=== PATIENT | female | born 1980 | race Caucasian/White ===

== ENCOUNTER 2017-10-16 08:21 | Outpatient (CLI) | payer MEDICAID ==
[~2017-10-16] VITALS: Ht 147.3 cm; Wt 87.2 kg
[2017-10-16 08:33] VITALS: Ht 147.3 cm; Wt 87.2 kg
[2017-10-16 08:34] VITALS: BP 112/66; PULSE 64; RESP 18
[2017-10-16] MEDS ORDERED: PNV11TAB PO (08:39)
--- NOTE | 2017-10-16 08:54 | PN ---
Triage Information Date/Time Reason for visit: Vag spotting / bleeding Weeks of Gestation Patient is a 36-year-old 4 para 3 at 31 weeks of gestation with estimated date of delivery December 18, 2017 Patient reports a history of delivery with her prior She reports of having vaginal spotting and bleeding in the first 4 months of this which ultimately resolved She is here today reporting of having an episode of vaginal bleeding last night which was bright red blood with a small clot She denies any intercourse in the last month Patient reports positive movement, no leaking fluid and no uterine contractions, no abdominal or pelvic pain /Para 4 para 3 Diabetes: none Hypertention: none Objective Vital Signs Date Time Temp Pulse Resp B/P Pulse Ox O2 Delivery O2 Flow Rate FiO2 10/16/17 08:34 98.0 64 18 112/66 Heart Rate: 140's Heart Rate Comments heart rate category 1 Contractions: None Results/Medications Results 24 hrs Labs within normal limits UA indicating 3+ blood Imaging Results PROCEDURE: US OB. CLINICAL INDICATION: Uncertain size and dates. TECHNIQUE: Multiple sonographic images of the uterus were obtained. Transvaginal sonography of the cervix was also performed. The images were reviewed on a PACS workstation. COMPARISON: No prior studies are available for comparison. FINDINGS: There is a single live intrauterine gestation. heart rate is 182 beats per minute. Measurements were made in order to determine age. The results are as follows: BPD = 7.99 cm. HC = 28.76 cm. AC = 27.95 cm. FL = 5.82 cm. Estimated weight is 1776 +/- 266 grams. LMP growth percentile is 54 %. Transvaginal cervical length is 5.2 cm. Menstrual age by ultrasound dates is 31 weeks 4 days. The estimated date of delivery is 12/14/2017. Position is breech and placenta is anterior grade 1. There is no evidence for an abruption or placenta previa. IMPRESSION: 1. Single live intrauterine gestation of 31 weeks 4 days menstrual age by ultrasound dates. 2. The estimated date of delivery is 12/14/2017. 3. Position is breech. 4. Cervical length is 5.2 cm. RPTAT: QQ .Dominic Owen MD, Date Time Electronically viewed and signed by .Dominic Owen MD, on 10/16/2017 09:37 .R/ CC: LAURA OREILLY MD PROCEDURE: US OB. CLINICAL INDICATION: Vaginal bleeding TECHNIQUE: Multiple sonographic images of the pelvis were obtained. The images were reviewed on a PACS workstation. COMPARISON: No prior studies are available for comparison. FINDINGS: There is a single live intrauterine . cardiac activity is identified at a rate of 140 beats per minute. presentation is breech. Placenta is anterior grade 1. There is no evidence of abruption. Biophysical profile score is as follows: Breathing 2 Movements 2 Tone 2 Fluid volume 2 Amniotic fluid index = 9.7 cm Total biophysical profile score = 8/8 IMPRESSION: Biophysical profile score = 8/8 RPTAT: HH .Toy Emmanuel MD, MD Date Time Electronically viewed and signed by .Toy Emmanuel MD, on 10/16/2017 09:15 .W/ CC: LAURA OREILLY MD Disposition: Discharge Assessment/Plan Patient was counseled regarding receiving betamethasone for lung maturity She will receive the first dose today She will be continued for observation for several hours if no contractions noted she will be discharged home Patient instructed to return immediately if any further episode of vaginal bleeding or leaking fluid or uterine contractions/abdominal or pelvic pain or no movement Patient further counseled to return in 24 hours for a second dose of betamethasone injection Patient further counseled regarding the breech presentation All patient's questions were answered and she completely understands the plan of care LAURA OREILLY MD Oct 16, 2017 08:54
[2017-10-16 09:04] LABS: BASOPHILS % 0.2 % (0.0-2.0); EOSINOPHILS # 0.1 10^3/ul (0.0-0.5); EOSINOPHILS % 0.8 % (0.0-7.0); HEMATOCRIT 35.1 % (37.0-47.0); HEMOGLOBIN 11.9 g/dl (12.0-16.0); LYMPHOCYTES # 1.7 10^3/ul (0.8-2.9); LYMPHOCYTES % 20.6 % (15.0-51.0); MEAN CORPUSCULAR HEMOGLOBIN 30.1 pg (29.0-33.0); MEAN CORPUSCULAR HGB CONC 33.9 g/dl (32.0-37.0); MEAN CORPUSCULAR VOLUME 88.6 fl (82.0-101.0); MEAN PLATELET VOLUME 10.2 fl (7.4-10.4); MONOCYTE # 0.4 10^3/ul (0.3-0.9); MONOCYTES % 4.3 % (0.0-11.0); NEUTROPHIL # 6.2 10^3/ul (1.6-7.5); NEUTROPHILS % 73.5 % (39.0-77.0); PLATELET COUNT 216 10^3/UL (140-415); RED BLOOD COUNT 3.96 10^6/ul (4.20-5.40); RED CELL DISTRIBUTION WIDTH 13.5 % (11.5-14.5); WHITE BLOOD COUNT 8.4 10^3/ul (4.8-10.8)
[2017-10-16 09:06] LABS: ADD UMIC YES; UR ASCORBIC ACID NEGATIVE (NEGATIVE); UR BACTERIA FEW /HPF (NONE SEEN); UR BILIRUBIN (Dip) NEGATIVE (NEGATIVE); UR BLOOD (Dip) 3+ mg/dL (NEGATIVE); UR CLARITY CLEAR (CLEAR); UR COLOR STRAW (YELLOW); UR GLUCOSE (Dip) NEGATIVE (NEGATIVE); UR KETONES (Dip) NEGATIVE (NEGATIVE); UR LEUKOCYTE ESTERASE (Dip) NEGATIVE Leu/ul (NEGATIVE); UR NITRITE (Dip) NEGATIVE (NEGATIVE); UR RBC 0 /HPF (0-5); UR SPECIFIC GRAVITY (Dip) 1.002 (1.003-1.030); UR TOTAL PROTEIN (Dip) NEGATIVE (NEGATIVE); UR UROBILINOGEN (Dip) NEGATIVE (NEGATIVE)
--- NOTE | 2017-10-16 09:15 | RADRPT ---
PROCEDURE: US OB. CLINICAL INDICATION: Vaginal bleeding TECHNIQUE: Multiple sonographic images of the pelvis were obtained. The images were reviewed on a PACS workstation. COMPARISON: No prior studies are available for comparison. FINDINGS: There is a single live intrauterine . cardiac activity is identified at a rate of 14 0 beats per minute. presentation is breech. Placenta is anterior grade 1. There is no evidence of abruption. Biophysical profile score is as follows: Breathing 2 Movements 2 Tone 2 Fluid volume 2 Amniotic fluid index = 9.7 cm Total biophysical profile score = 8/8 IMPRESSION: Biophysical profile score = 8/8 RPTAT: HH .Toy Emmanuel MD, MD Date Time Electronically viewed and signed by .Toy Emmanuel MD, MD on 10/16/2017 09:15 .W/
[2017-10-16 09:25] LABS: ALBUMIN 3.3 g/dl (3.3-4.9); ALBUMIN/GLOBULIN RATIO 0.91; BILIRUBIN,INDIRECT 0.2 mg/dl (0-1.1); BILIRUBIN,TOTAL 0.2 mg/dl (0.2-1.3); CALCIUM 9.3 mg/dl (8.4-10.2); CREATININE 0.47 mg/dl (0.44-1.00); POTASSIUM 3.9 mmol/L (3.5-5.1); TOTAL PROTEIN 6.9 g/dl (6.1-8.1)
--- NOTE | 2017-10-16 09:37 | RADRPT ---
PROCEDURE: US OB. CLINICAL INDICATION: Uncertain size and dates. TECHNIQUE: Multiple sonographic images of the uterus were obtained. Transvaginal sonograp hy of the cervix was also performed. The images were reviewed on a PACS workstation. COMPARISON: No prior studies are available for comparison. FINDINGS: There is a single live intrauterine gestation. heart rate is 182 beats per minute. Measurements were made in order to determine age. The results are as follows: BPD = 7.99 cm. HC = 28.76 cm. AC = 27.95 cm. FL = 5.82 cm. Estimated weight is 1776 +/- 266 grams. LMP growth percentile is 54 %. Transvaginal cervical length is 5.2 cm. Menstrual age by ultrasound dates is 31 weeks 4 days. The estimated date of delivery is 12/14/2017. Position is breech and placenta is anterior grade 1. There is no evidence for an abruption or placen ta previa. IMPRESSION: 1. Single live intrauterine gestation of 31 weeks 4 days menstrual age by ultrasound dates. 2. The estimated date of delivery is 12/14/2017. 3. Position is breech. 4. Cervical length is 5.2 cm. RPTAT: QQ .Dominic Owen MD, Date Time Electronically viewed and signed by .Dominic Owen MD, on 10/16/2017 09:37 .R/
[2017-10-16] MEDS ORDERED: BETAMET NA PHOS/AC(6 MG/ML) 5ML INJ ONE (09:55)
[2017-10-16] MEDS ORDERED: BETAMET NA PHOS/AC(6 MG/ML) 5ML INJ IM ONE (10:00)
--- NOTE | 2017-10-16 14:46 | TRIAGE ---
OB Triage Datetime Report Generated by CPN: 10/16/2017 14:46 Datetime: 10/16/2017 11:43 Stage of : OB Triage Datetime: 10/16/2017 11:40 Labor Evaluation Frequency: 0 Monitor Mode: External Resting Tone Clifford: Relaxed Heart Rate FHR Baseline Rate: 135 Monitor Mode: External US Variability: Moderate 6-25 bpm Accelerations: 10X10 Decelerations: None Category: Category I Pain Assessment Pain Scale: 0 Pain Presence: None/Denies Pain Type: N/A Pain Goal: 3 Pain Relief Measures: Comfort Measures Datetime: 10/16/2017 10:45 Labor Evaluation Frequency: 0 Monitor Mode: External Resting Tone Clifford: Relaxed Heart Rate FHR Baseline Rate: 135 Monitor Mode: External US Variability: Moderate 6-25 bpm Accelerations: 10X10 Decelerations: None Category: Category I Pain Assessment Pain Scale: 0 Pain Presence: None/Denies Pain Type: N/A Pain Goal: 3 Pain Relief Measures: Comfort Measures Datetime: 10/16/2017 09:49 Stage of : OB Triage Datetime: 10/16/2017 09:48 Labor Evaluation Frequency: 0 Monitor Mode: External Resting Tone Clifford: Relaxed Heart Rate FHR Baseline Rate: 135 Monitor Mode: External US Variability: Moderate 6-25 bpm Accelerations: 10X10 Decelerations: None Category: Category I Pain Assessment Pain Scale: 0 Pain Presence: None/Denies Pain Type: N/A Pain Goal: 3 Pain Relief Measures: Comfort Measures Datetime: 10/16/2017 08:41 Stage of : OB Triage Datetime: 10/16/2017 08:29 Stage of : OB Triage Assessment Type: Triage EGA: 31.0 Maternal Assessment Level of Consciousness: Fully Conscious DTR's/Clonus: DTRs 2+; No Clonus Headache: Denies Blurred Vision: No Respiratory Effort: Unlabored; Regular Rhythm; Equal Expansion Breath Sounds, Left: Clear and Equal Breath Sounds, Right: Clear and Equal Nausea/Vomiting: Denies RUQ Epigastric Pain: Denies Facial Edema: None Temperature Route: Axillary Fall Risk Assessment History of Falling: (0) No Secondary Diagnosis: (0) No Ambulatory Aid: (0) Bedrest/Nurse Assist IV Therapy: (0) No Gait: (0) Normal/Bedrest/Immobile Mental Status: (0) Oriented to Own Ability Fall Score: 0 Fall Risk Score Definition: No Risk: No action required Labor Evaluation Frequency: 0 Monitor Mode: External Resting Tone Clifford: Relaxed Heart Rate FHR Baseline Rate: 145 Monitor Mode: External US Variability: Moderate 6-25 bpm Decelerations: None Category: Category I Pain Assessment Pain Scale: 0 Pain Presence: None/Denies Pain Type: N/A Pain Goal: 3 Pain Relief Measures: Comfort Measures Datetime: 10/16/2017 08:26 Time of Arrival: 10/16/2017 08:15 Arrived By: Ambulatory Arrived From: Home Chief Complaint: C/O SCANT BLEEDING TODAY, DENIES LEAKING OF FLUID, OR ABDOMINAL PAIN Movement: Present Contractions: Denies/Absent Rupture of Membranes: Denies Vaginal Bleeding: Scant Vaginal Discharge: Present Recent Sexual Intercouse: Denies Abdominal Trauma: Not Applicable Patient Complaints: None Additional Patient Complaints: hx in august of possible leaking of fluid, Time Provider Notified: 10/16/2017 08:41 Provider Notified: tyson Initial Plan: MONITOR, CBC, T_S, CMP, U/A, BPP, EFW, CL (Annotations: Data stored by CPN on behalf of user)
[2017-10-17] MEDS ORDERED: CALC600T5 PO (10:43)
[2017-10-17] MEDS ORDERED: FERR236T PO (10:43)
[2017-10-17] MEDS ORDERED: FOLI-49 PO (10:44)
== END 2017-10-16 11:50 | disposition home or self-care (01) ==
LOC: MERGE 08:21 → OBT 08:21 → L-D 08:22 → OBT 11:50
PROVIDERS: ATTEND Obstetrics & Gynecology
DX: O46.93 Antepartum hemorrhage, unspecified, third trimester (principal); O09.523 Supervision of elderly multigravida, third trimester; Z3A.31 31 weeks gestation of pregnancy
CPT/HCPCS: 36415; 76815; 76817; 76818; 80053; 81001; 85025; 86850; 86900; 86901; 96372; J0702; Z7500; G0463

== ENCOUNTER 2017-10-17 10:19 | Outpatient (CLI) | payer MEDICAID ==
[~2017-10-17] VITALS: Ht 152.4 cm; Wt 88.2 kg
[~2017-10-17 10:19] MED LIST: PNV11TAB PO
[2017-10-17] MEDS ORDERED: CALC600T5 PO (10:43)
[2017-10-17] MEDS ORDERED: FERR236T PO (10:43)
[2017-10-17] MEDS ORDERED: FOLI-49 PO (10:44)
[2017-10-17] MEDS ORDERED: BETAMET NA PHOS/AC(6 MG/ML) 5ML INJ IM ONE (10:45)
[2017-10-17 10:47] VITALS: BP 98/56; PULSE 79; RESP 18
--- NOTE | 2017-10-17 11:33 | PN ---
Triage Information Date/Time Reason for visit: Weeks of Gestation Patient is a 36-year-old 4 para 3 at 31 weeks and 1 day of gestation with estimated date of delivery December 18, 2017 She was seen here yesterday in triage with a chief complaint of vaginal spotting and bleeding with prior obstetrical history significant for delivery; subsequently she was given 1 dose of betamethasone and she is here to receive the second dose of betamethasone Patient has no complaints of vaginal spotting or bleeding today, she has no reports of contractions or leaking fluid Patient reports positive movement /Para 4 para 3 Diabetes: none Hypertention: none Objective Vital Signs Date Time Temp Pulse Resp B/P Pulse Ox O2 Delivery O2 Flow Rate FiO2 10/17/17 10:47 97.7 79 18 98/56 91 Room Air Heart Rate: 140's Heart Rate Comments heart rate tracing category 1 Contractions: None Results/Medications Imaging Results Biophysical profile 8 out of 8 on October 16, 2017 Disposition: Discharge Assessment/Plan Second dose of betamethasone was given today Patient was instructed to follow-up with her own [facility] on October 19 Patient was given kick count instructions and labor precautions Patient to be discharged home LAURA OREILLY MD Oct 17, 2017 11:33
--- NOTE | 2017-10-17 11:46 | TRIAGE ---
OB Triage Datetime Report Generated by CPN: 10/17/2017 11:45 Datetime: 10/17/2017 11:26 Frequency: 0 Monitor Mode: External Pattern: Normal: <= 5 Contractions in 10 Minutes Resting Tone Swisher: Relaxed FHR Baseline Rate: 145 Monitor Mode: External US FHR Baseline Changes: No Baseline Change Variability: Moderate 6-25 bpm Accelerations: 15X15 Decelerations: None Pain Scale: 0 Pain Presence: None/Denies Pain Type: N/A Datetime: 10/17/2017 10:39 Time of Arrival: 10/17/2017 10:11 EGA: 31.1 Arrived By: Ambulatory Arrived From: Home Chief Complaint: 2ND DOSE OF BETAMETHASONE Movement: Present Contractions: Denies/Absent Rupture of Membranes: Denies Vaginal Bleeding: None Vaginal Discharge: Denies Abdominal Trauma: Not Applicable Patient Complaints: None Time Provider Notified: 10/17/2017 11:20 Provider Notified: DR. RAMOS Initial Plan: EFM x2, 2nd dose of betamethasone Datetime: 10/17/2017 10:33 Stage of : OB Triage Assessment Type: Triage Level of Consciousness: Fully Conscious Headache: Denies Blurred Vision: No Respiratory Effort: Unlabored; Regular Rhythm; Equal Expansion Breath Sounds, Left: Clear and Equal Breath Sounds, Right: Clear and Equal Nausea/Vomiting: Denies RUQ Epigastric Pain: Denies Lower Extremities Edema: None Degree: None Upper Extremities Edema: None Degree: None Facial Edema: None Temperature Route: Axillary History of Falling: (0) No Secondary Diagnosis: (0) No Ambulatory Aid: (0) Bedrest/Nurse Assist IV Therapy: (0) No Gait: (0) Normal/Bedrest/Immobile Mental Status: (0) Oriented to Own Ability Fall Score: 0 Fall Risk Score Definition: No Risk: No action required
== END 2017-10-17 11:40 | disposition home or self-care (01) ==
LOC: MERGE 10:19 → OBT 10:19 → L-D 10:20 → OBT 11:40
PROVIDERS: ATTEND Obstetrics & Gynecology
DX: O26.853 Spotting complicating pregnancy, third trimester (principal); O09.523 Supervision of elderly multigravida, third trimester; Z3A.31 31 weeks gestation of pregnancy
CPT/HCPCS: J0702; Z7500; G0463

== ENCOUNTER 2017-10-31 08:28 | Outpatient (CLI) | END 2017-10-31 10:50 | disposition home or self-care (01) ==

== ENCOUNTER 2017-12-16 12:08 | Inpatient (IN) | END 2017-12-19 13:05 | disposition home or self-care (01) | DRG 766 ==